=== PATIENT | female | born 2000 | race Caucasian/White ===

== ENCOUNTER 2021-08-12 16:12 | Emergency (ER) | payer OTHER ==
[2021-08-12 18:59] LABS: BILIRUBIN NEGATIVE (NEGATIVE); BLOOD NEGATIVE Ery/uL (NEGATIVE); CLARITY CLEAR (CLEAR); COLOR YELLOW (YELLOW); GLUCOSE (U) NORMAL (NORMAL); LEUKOCYTES NEGATIVE Leu/uL (NEGATIVE); NITRITE NEGATIVE (NEGATIVE); PROTEIN NEGATIVE (NEGATIVE); UROBILINOGEN 0.2 mg/dL (0.2-1.0); pH 6.5 (5.0-9.0)
[2021-08-12 19:08] LABS: URINARY RBC RARE
[2021-08-12 19:10] LABS: BACTERIA 1+; TRANSITIONAL EPITHELIAL CELLS RARE
[2021-08-12 20:04] LABS: BASOPHIL 0.3 % (0-2); EOSINOPHIL 1.4 % (0-5); HCT 45.6 % (37.0-47.0); HGB 15.2 g/dl (12.5-16.0); MCH 31.6 pg (25.0-31.0); MCHC 33.3 g/dL (32.0-36.0); MCV 94.8 fL (78.0-100.0); MONOCYTE 4.6 % (0-12); MPV 9.9 fL (6.0-9.5); NEUTROPHIL 58.2 % (41-80); NRBC 0; PLT 277 K/uL (150-400); RBC 4.81 M/uL (4.20-5.40); RDW 12.9 % (11.5-14.0); WBC 15.4 K/uL (4.0-10.5)
[2021-08-12 20:22] LABS: BUN/CREAT RATIO (CALC) 6.9 RATIO; CREATININE 1.01 mg/dL (0.51-0.95); POTASSIUM 3.8 mmol/L (3.5-5.1)
[2021-08-12] MEDS ORDERED: FLOMAX0.4 MG PO (22:07)
[2021-08-12] MEDS ORDERED: NORCO 5-325 TA1 EACH PO (22:07)
[2021-08-12] MEDS ORDERED: ONDANSETRON ODT4 MG PO (22:07)
== END 2021-08-12 22:30 | disposition home or self-care (01) ==
LOC: FER 16:12
PROVIDERS: Nurse Practitioner Family
DX: N20.0 Calculus of kidney (principal); Z28.310 Unvaccinated for COVID-19
CPT/HCPCS: 36415; 80048; 81001; 85025